=== PATIENT | male | born 1975 | race Caucasian/White ===

== ENCOUNTER → 2024-06-27 | Outpatient (CLI) | payer OTHER ==
[2024-06-27 13:32] VITALS: BP 125/79; PULSE 76; RESP 16; TEMP 97.8
--- NOTE | 2024-06-27 14:39 | P.SLEEP ---
History of Present Illness H&P Date: 06/27/24 48-year-old male patient, recovering alcoholic, with known history of obstructive sleep apnea that was diagnosed more than 7 years ago, who is coming in for further advice regarding his condition. Currently is off treatment. He brings with him a APAP unit that he had used in the past, a ResMed 10 which is an APAP mode pressures of 7/17 cm of water. I noted that over the past 365 days, the patient has used the machine only 37 days and is 95th percentile pressure was 11.5 with an AHI of 0.7. His baseline polysomnography was done through [facility]. He has a Simplus full facemask. As the patient is off treatment, he is complaining of snoring, apneas, excessive fatigue and sleepiness and nocturia and restlessness. He is averaging around 8 hours of sleep and he wakes up tired and sleepy and he is positive concentration and memory. He is interested in treatment specially the patient takes care of his who suffers from chronic demyelinating inflammatory disorder. He seems to be the main caregiver. He has history of anxiety/depression/bipolar disorder. He smokes marijuana on a daily basis. No cigarette smoking. Does not fall asleep while driving. No history of any motor vehicle accidents because of feeling drowsy or sleepy. No recent weight gain. He has been alcohol free for the past 3 years. Review of Systems Constitutional: Reports as per HPI, Reports daytime sleepiness, Reports fatigue Eyes: denies as per HPI, denies blurred vision, denies bulging eye, denies decreased vision, denies diplopia, denies discharge, denies dry eye, denies irritation, denies itching, denies pain, denies photophobia, denies loss of peripheral vision, denies loss of vision, denies tunnel vision/blind spots Ears: deny: decreased hearing, ear discharge, earache, tinnitus Ears, nose, mouth and throat: Reports as per HPI Breasts: absent: as per HPI, gynecomastia Cardiovascular: Reports as per HPI Respiratory: Reports as per HPI, Reports sleep apnea, Reports snoring Gastrointestinal: Reports as per HPI Genitourinary: Reports as per HPI Musculoskeletal: Reports as per HPI Musculoskeletal: absent: ankle pain, ankle stiffness, ankle swelling, as per HPI, elbow pain, elbow stiffness, elbow swelling, foot pain, foot stiffness, foot swelling, hand pain, hand stiffness, hand swelling, hip pain, hip stiffness, hip swelling, knee pain, knee stiffness, knee swelling, shoulder pain, shoulder stiffness, shoulder swelling, wrist pain, wrist stiffness, wrist swelling Integumentary: Reports as per HPI Neurological: Reports as per HPI Psychiatric: Reports change in sleep habits, Reports hypersomnia, Reports sleep disturbances Endocrine: Reports as per HPI, Reports fatigue Hematologic/Lymphatic: Reports as per HPI Allergic/Immunologic: Reports as per HPI Past Medical History Past Medical History: GERD/Reflux, Sleep Apnea/CPAP/BIPAP Additional Past Medical History / Comment(s): Alcoholism, depression, bipolar disorder, BPH, hyperlipidemia, hypertension, acid reflux. , History of Any Multi-Drug Resistant Organisms: None Reported Past Surgical History: No Surgical Hx Reported Past Psychological History: Bipolar, Depression Additional Psychological History / Comment(s): manic depression Smoking Status: Current every day smoker Past Alcohol Use History: None Reported Additional Past Alcohol Use History / Comment(s): Hx: Alcoholism, sober x 3 years Past Drug Use History: Marijuana Additional Drug Use History / Comment(s): had marijuanna about 1.5 hrs ago - Past Family History Mother Family Medical History: Cancer, Diabetes Mellitus Additional Family Medical History / Comment(s): mental illiness Father Additional Family Medical History / Comment(s): snoring Medications and Allergies Home Medications Medication Instructions Recorded Confirmed Type FLUoxetine HCL [Sarafem] 60 mg PO DAILY 06/27/24 06/27/24 History OLANZapine 5 mg PO BID 06/27/24 06/27/24 History Propranolol [Inderal] 10 mg PO TID 06/27/24 06/27/24 History QUEtiapine [SEROquel] 50 mg PO HS 06/27/24 06/27/24 History Tamsulosin [Flomax] 0.4 mg PO DAILY 06/27/24 06/27/24 History buPROPion [Wellbutrin] 100 mg PO DAILY 06/27/24 06/27/24 History lamoTRIgine [LaMICtal] 150 mg PO BID 06/27/24 06/27/24 History traZODone HCL [Desyrel] 50 mg PO HS 06/27/24 06/27/24 History Physical Exam Vitals: Vital Signs Temp Pulse Resp BP Pulse Ox 06/27/24 13:32 97.8 F 76 16 125/79 97 Intake and Output 06/26/24 06/27/24 06/27/24 22:59 06:59 14:59 Other: Weight 92.986 kg BP is 125/79 with a pulse of 76 and respiration of 16 and a body mass index of 31.1 with a weight of 205 with a temperature of 97.5 and a pulse ox of 97% room air oxygen. Height is 5 feet and 8 inches The patient appeared well nourished and normally developed. Vital signs as documented. Head exam is unremarkable. No scleral icterus or corneal arcus noted. Neck is without jugular venous distension, thyromegaly, or carotid bruits. Carotid upstrokes are brisk bilaterally. Lungs are clear to auscultation and percussion. Cardiac exam reveals the PMI to be normally sized and situated. Rhythm is regular. First and second heart sounds normal. No murmurs, rubs or gallops. Abdominal exam reveals normal bowel sounds, no masses, no organomegaly and no aortic enlargement. Extremities are nonedematous and both femoral and pedal pulses are normal. Examination of the skin revealed no evidence of significant rashes, suspicious appearing nevi or other concerning lesions. Neurologically, the patient is awake and alert and the patient does not have any focal neurological deficit. Cranial nerves are essentially intact. Assessment and Plan Plan: Obstructive sleep apnea, currently on no treatment and the patient is experiencing hypersomnia sleepiness. The patient was diagnosed many years back through [facility] and he has a ResMed 10 CPAP unit which is set in APAP mode pressures of 7/17 cm of water. He has not used his machine for the past 9 months. Alcoholism, recovered and the patient is alcohol free for the past 3 years Chronic depression/bipolar disorder BPH Hyperlipidemia Hypertension Acid reflux Daily cannabis smoking Plan Will do a polysomnography to reevaluate the presence and severity of sleep apnea Meanwhile, the patient has a functioning CPAP unit that he can utilize. I offered him the AirFit F40 medium size fullface mask and he was going to restart the treatment. I modified his CPAP machine and the patient will be set at an APAP mode pressures of 5/12 cm of water. I dropped the humidity level down to 2. Advised him to put distilled water in his container. Set the temperature of the climate line at 70 F. Maintain good sleep hygiene measures History of alcohol for the past 3 years Continue same medications for mental health His DME company is [employer] May need an updated CPAP machine at a later stage depending on his overall response to his current machine. Sleep Note - Sleep Data ESS Total: 18 - Sleep Note Sleep Note: Temperature: 97.8 F Pulse Rate: 76 Respiratory Rate: 16 Blood Pressure: 125/79 SpO2: 97 Height: 5 ft 8 in Weight: 92.986 kg BMI: Neck Circumference: 16.5
== END ==
LOC: 3 N SLEEP 13:07
PROVIDERS: ATTEND Internal Medicine Critical Care Medicine
CPT/HCPCS: 99202

== ENCOUNTER 2024-07-04 19:42 | Outpatient (CLI) | payer OTHER ==
--- NOTE | 2024-07-16 11:19 | P.PCN ---
Date of Procedure: 07/04/24 Operative Findings: Polysomnography report Date of service is 07/04/2024 Pertinent history 48-year-old male patient, recovering alcoholic, with known history of obstructive sleep apnea that was diagnosed more than 7 years ago, who is coming in for further advice regarding his condition. Currently is off treatment. He brings with him a APAP unit that he had used in the past, a ResMed 10 which is an APAP mode pressures of 7/17 cm of water. I noted that over the past 365 days, the patient has used the machine only 37 days and is 95th percentile pressure was 11.5 with an AHI of 0.7. His baseline polysomnography was done through [facility]. He has a Simplus full facemask. As the patient is off tr eatment, he is complaining of snoring, apneas, excessive fatigue and sleepiness and nocturia and restlessness. He is averaging around 8 hours of sleep and he wakes up tired and sleepy and he is positive concentration and memory. He is interested in treatment specially the patient takes care of his who suffers from chronic demyelinating inflammatory disorder. He seems to be the main caregiver. He has history of anxiety/depression/bipolar disorder. He smokes marijuana on a daily basis. No cigarette smoking. Does not fall asleep while driving. No history of any motor vehicle accidents because of feeling drowsy or sleepy. No recent weight gain. He has been alcohol free for the past 3 years. I saw the patient in the sleep center. His machine was functional. I offered him an AirFit F40 fullface mask and I asked him to restart the treatment and during this time the screening polysomnography was done to reevaluate the presence of obstructive sleep apnea. Pertinent physical findings The patient's weight is 208 and body mass index is 31.6 Technical description The patient was studied using a standard complex polysomnography protocol that included recording of the Lead II EKG, Central, occipital and frontal EEG, right and left outer canthus EOG, submental EMG, right and left anterior tibialis EMG, respiratory airflow by thermocouple and or pressure/flow transducer, respiratory efforts by abdominal and thoracic PVDF belts, oxygen saturation by cable oximetry. Position by observation synchronized the PSG. Equipment used: [employer]. Sleep characteristics The total recording duration was 413 minutes. The total sleep time was 344.5 minutes. The sleep efficiency was calculated to be at 83.4%. The latency to sleep onset is 13.5 minutes. The latency to REM sleep was 240 minutes. The sleep architecture was characterized by 33.8% stage I, 42.1% stage II, 0% stage III, and 24.1% REM sleep. The wake after sleep onset time was 51.5 minutes. The total arousal index was 6.3. Respiratory analysis The sleep study showed a total of 2 obstructive events of which 0 were obstructive apneas, 0 mixed apneas, 2 were obstructive hypopneas and the resulting AHI was 0.3. No central apneas were noted. The respiratory arousal index was 0. Oxygenation analysis No oxygen desaturations were encountered and the patient's pulse ox remained above 90% throughout the sleep study. The baseline pulse ox while awake was 93% and lowest saturation was 88%. Sleep continuity summary The patient had a total of 36 arousals with an index of 6.3 and the respiratory arousal index was 0 Periodic limb movement summary The patient had a total of 23. Regular movements with an index of 4.0, not causing any arousals Cardiac summary The patient has a average heart rate of 70 with a minimum heart rate of 65 and a maximum heart rate of 76 Assessment Primary snoring without evidence of any significant sleep breathing disorder. AHI was 0.3. No significant nocturnal oxygen desaturations. Adequate sleep maintenance with low arousal index Over representation of stage I sleep with diminished delta wave and diminished stage II, overall sleep efficiency was 83.4%, this is probably a drug effect as the patient is taking various psychotropic medication. History of alcoholism Chronic anxiety/depression/bipolar disorder Hypertension Hyperlipidemia BPH Acid reflux Daily cannabis smoking Plan I reviewed the patient's screening polysomnography. There is no evidence of any obstructive sleep apnea. I do not see value for CPAP therapy at this point in time. The patient will be instructed to discontinue treatment at this point and focus on treating his comorbidities and maintaining a regular sleep schedule and good sleep hygiene measures. Encourage weight loss. Maintain regular sleep schedule. Treat comorbidities hide the patient has been maintained on a combination of Seroquel, Paxil and Vistaril and Lamictal and Wellbutrin. Follow-up with psychiatry. Refer this patient back to primary care. This is a negative study.
== END 2024-07-05 05:05 | disposition home or self-care (01) ==
LOC: 3 N SLEEP 19:42
PROVIDERS: ATTEND Internal Medicine Critical Care Medicine
CPT/HCPCS: 95810